=== PATIENT | female | born 1995 | race American Indian/Alaskan Native ===

== ENCOUNTER 2020-02-03 15:23 | Outpatient (CLI) | payer BC, MEDICAID ==
[2020-02-03 16:51] VITALS: BP 112/64
[2020-02-03] MEDS ORDERED: LACTATED RINGERS 1,000 ML IV SCH (17:00)
[2020-02-03 17:17] LABS: Bacteria,Urine 1+ /HPF (Negative); Bilirubin,Urine NEG (Negative); Blood,Urine SM (Negative); Color,Urine Yellow (Yellow); Mucus,Urine 2+ /HPF
== END 2020-02-03 19:00 | disposition home or self-care (01) ==
LOC: APU 15:23 → TRG 15:23
PROVIDERS: ATTEND Obstetrics & Gynecology
DX: O26.893 Other specified pregnancy related conditions, third trimester (principal); R10.9 Unspecified abdominal pain; O47.03 False labor before 37 completed weeks of gestation, third trimester; R19.7 Diarrhea, unspecified; O13.3 Gestational [pregnancy-induced] hypertension without significant proteinuria, third trimester; Z3A.34 34 weeks gestation of pregnancy
CPT/HCPCS: 59025; 81001; 96360

== ENCOUNTER 2022-02-16 02:53 | Inpatient (IN) | payer MEDICAID ==
[2022-02-14 12:10] LABS: Hemoglobin 10.3 gm/dl (10.1-14.3); Mean Corpuscular HGB Conc 33 % (30-34); Mean Corpuscular Volume 82 fl (79-97); Platelet Count 129 K/mm3 (140-440); Red Blood Count 3.76 M/mm3 (3.65-5.03)
--- NOTE | 2022-02-15 19:00 | History and Physical Report ---
History of Present Illness Date of examination: 02/10/22 Chief complaint: Repeat delivery with removal of both fallopian tubes for sterilization History of present illness: EDC Calculations LMP: 02/18/2022 EDC Confirmation: 02/18/2022 Gestational Age: 7 3/7 weeks Past History : 4 Term Births: 2 Premature Births: 0 Living Children: 2 Para: 2 Mult. Births: 0 Prev : 2 Prev. attempt? 0 Aborta: 1 Elect. Ab: 1 Spont. Ab: 0 Ectopics: 0 # 1 Delivery date: 09/21/2014 Weeks Gestation: 38 Delivery type: Hours of labor: 18 Anesthesia type: Spinal Delivery location: [facility] Infant Sex: male weight: 6.50 Name: Reyes Comments: PPROM/ Failure of dilatation # 2 Delivery date: 03/10/2020 Weeks Gestation: 39 Delivery type: Anesthesia type: Spinal Delivery location: [facility] Sex: male weight: 8.25 Name: Dylan # 3 Delivery date: 09/2020 Weeks Gestation: 6 Delivery type: EAB Comments: D&C, no complications Past Medical History: Reviewed history from 01/06/2021 and no changes required: Negative Past Medical History Past Surgical History: Reviewed and updated today: positive, Gallbladder removed x2 Risk Factors: Smoked Tobacco Use: Never smoker Smokeless Tobacco Use: Never Counseled to Quit/Cut Down: yes Passive Smoke Exposure: no HIV High Risk Behavior: no Caffeine Use: <1 drinks per day Exercise: yes Times/wk: 4 Type of Exercise: walking, pushups & situps No Exercise Counseling Reason: Medical Reason Seatbelt Use: preg-mental health counselor % Family History Risk Factors: Family History of NV in 1 Female Relative Age < 65: no Family History of NV in 1 Male Relative Age < 55: no No Dietary Counseling Reason: pn yes PAP Smear History: Date of Last PAP Smear: 01/11/2021 Results: Normal Alcohol Use: no Drug Use: no Past Medical History Anesthesia Complications: negative Anemia: negative Autoimmune Disorder: negative Bleeding Disorder: negative Blood Transfusions: negative Breast Disease: negative Diabetes: negative Heart Disease: negative Hypertension: negative Hepatitis/Liver Disease: negative Kidney Disease/UTI: negative Neurologic/Epilepsy/Migraines: negative Phlebitis/Varicosities: negative Psychiatric: negative Pulmonary Disease/Asthma: negative Thyroid Disease: negative Hospitalizations: negative Surgery (Non-quarter backer): positive, Gallbladder removed Abnormal PAP: negative PAMELA Exposure: negative Infertility: negative Uterine Anomaly: negative Uterine Surgery (not C/S): negative Other Gynecologic Problems: negative Social Hx: unemployed Patient is long-term relationship Smoking History: Patient has never smoked. Infection History Hx of STD: chlamydia HIV Risk Eval: no Personal hx. of genital herpes: no Partner hx. of genital herpes: no Rash, Viral, or Febrile illness since last LMP? no Varicella/Chicken Pox Status: Unknown TB Risk: no Genetic History Congenital Heart Defect: Mom: no Dad: no Aileen Disease: Mom: no Dad: no Thalassemia Mom: no Dad: no Neural Tube Defect Mom: no Dad: no Down's Syndrome Mom: no Dad: no Nick-Sachs Mom: no Dad: no Sickle Cell Disease/Trait Mom: no Dad: no Hemophilia Mom: no Dad: no Muscular Dystrophy Mom: no Dad: no Cystic Fibrosis Mom: no Dad: no Levy Chorea Mom: no Dad: no Mental Retardation Mom: no Dad: no Fragile X Mom: no Dad: no Other Genetic/Chromosomal Disorder Mom: no Dad: no Child w/other defect Mom: no Dad: no Enviromental Exposures Xray Exposure: no Medication, drug, or alcohol use since LMP: no Chemical/Other Exposure: no Exposure to Cat Liter: no Hx of Parvovirus (Fifth Disease): no Occupational Exposure to Children: none Active Medications (reviewed today): Diclegis 10-10 mg tablet,delayed release (DR/EC) (doxylamine-pyridoxine (vit b6) ) Current Allergies: No known allergies HBsAg Screen Negative Negative *1 RPR Non Reactive Non Reactive *2 Rubella Antibodies, IgG 5.29 index Immune >0.99 *3 Non-immune <0.90 Equivocal 0.90 - 0.99 Immune >0.99 ABO Grouping A *4 Rh Factor Negative *5 Please note: Prior records for this patient's ABO / Rh type are not available for additional verification. Antibody Screen Negative Negative *6 WBC 9.0 x10E3/uL 3.4-10.8 *7 RBC 4.47 x10E6/uL 3.77-5.28 *8 Hemoglobin 12.2 g/dL 11.1-15.9 *9 Hematocrit 37.8 % 34.0-46.6 *10 MCV 85 fL 79-97 *11 MCH 27.3 pg 26.6-33.0 *12 MCHC 32.3 g/dL 31.5-35.7 *13 RDW 13.1 % 11.7-15.4 *14 Platelets 192 x10E3/uL 150-450 *15 Neutrophils 63 % Not Estab. *16 Lymphs 29 % Not Estab. *17 Monocytes 7 % Not Estab. *18 Eos 1 % Not Estab. *19 Basos 0 % Not Estab. *20 ! Immature Cells <No Reported Value> *21 Neutrophils (Absolute) 5.6 x10E3/uL 1.4-7.0 *22 Lymphs (Absolute) 2.6 x10E3/uL 0.7-3.1 *23 Monocytes(Absolute) 0.7 x10E3/uL 0.1-0.9 *24 Eos (Absolute) 0.1 x10E3/uL 0.0-0.4 *25 Baso (Absolute) 0.0 x10E3/uL 0.0-0.2 *26 ! Immature Granulocytes 0 % Not Estab. *27 ! Immature Grans (Abs) 0.0 x10E3/uL 0.0-0.1 *28 ! NRBC <No Reported Value> *29 Hematology Comments: <No Reported Value> *30 Tests: (2) HB Solu + Rflx Fra ([id number]) Hemoglobin (Hgb) Solubility Negative Negative *31 Tests: (3) HIV Ab/p24 Ag with Reflex ([id number]) HIV Ab/p24 Ag Screen Non Reactive Non Reactive *32 HIV Negative HIV-1/HIV-2 antibodies and HIV-1 p24 antigen were NOT detected. There is no laboratory evidence of HIV infection. Tests: (4) Varicella-Zoster V Ab, IgG ([id number]) ! Varicella Zoster IgG >4000 index Immune >165 *33 Negative <135 Equivocal 135 - 165 Positive >165 A positive result generally indicates exposure to the pathogen or administration of specific immunoglobulins, but it is not indication of active infection or stage of disease. Tests: (5) Varicella-Zoster Ab, IgM ([id number]) ! Varicella-Zoster Ab, IgM [H] 1.72 index 0.00-0.90 *34 Negative <0.91 Borderline 0.91 - 1.09 Positive >1.09 Tests: (6) HCV Antibody reflex to ROMINA ([id number]) HCV Ab <0.1 s/co ratio 0.0-0.9 *35 Tests: (7) Interpretation: ([id number]) ! Interpretation: SPRCS *36 Negative Not infected with HCV, unless recent infection is suspected or other evidence exists to indicate HCV infection. Tests: (8) Urine Culture, Routine ([id number]) Urine Culture, Routine Final report *37 Tests: (9) Result ([id number]) ! Result 1 No growth *38 Physical Exam General appearance: well nourished, healthy appearing, no distress Chest/Lungs: respiratory effort normal, lungs clear to auscultation Abdomen/GI: soft, nontender Extremities: no discoloration or edema Vagina: normal appearance, no discharge Cervix: Dilation (cm): 0 Effacement: 0% Station: -3 Position: posterior Consistency: soft Problem # 1: Maternal care for low transverse scar from previous delivery (ICD-654.23) (PNG17-T21.211) Consent reviewed and signed. The risks and alternatives for this surgery were reviewed with the patient. She was informed of, but not limited to, possible bleeding, infection, injury to bowel, bladder, ureters or other adjacent organs. The patient was instructed/informed the following: The normal length of hospital stay for this procedure. Nothing to eat or drink after midnight the evening prior to surgery. Wound care instructions given. Infection precautions reviewed, patient to call for any signs or symptoms of infection. The usual discomforts associated with this procedure were detailed. Proper use of pain medicines was reviewed. Patient was given ample opportunity to have all her questions answered before signing informed consent. Problem # 2: Sterilization (ICD-V25.2) (JOJ34-H23.2) Risks of regret emphasized. Permanent and irreversible condition explained to patient. Pt verbalized understanding. Consent reviewed and signed. Pre- operative instructions sheets given. The risks and alternatives to this surgery were reviewed with the patient. Infection precautions reviewed, pt to call for any signs or symptoms of infection. Patient given ample opportunity to have all her questions answered before signing informed consent. Patient informed of possible bleeding. 1%failure rate emphasized Problem # 3: Type A blood, Rh negative (FJQ54-F25.11) RHOGAM given 12/20/2021 Past History - Obstetrical History Expected Date of Delivery: 02/18/22 Actual Gestation: 39 Week(s) 4 Day(s) : 4 Medications and Allergies Allergies Allergy/AdvReac Type Severity Reaction Status Date / Time No Known Drug Allergies Allergy Unknown Verified 02/08/22 16:57 Home Medications Medication Instructions Recorded Confirmed Last Taken Type No Known Home Medications [No 02/08/22 02/08/22 Unknown History Reported Home Medications] Active Meds: Active Medications Citric Acid/Sodium Citrate (Bicitra Oral Liqd 30ml) 30 ml PO ONCE ONE Stop: 02/16/22 06:01 Famotidine (Famotidine 20 Mg/2 Ml Inj) 20 mg IV ONCE KAMARI Lactated Ringer's (Lactated Ringers) 1,000 mls @ 2,250 mls/hr IV PREOP KAMARI Stop: 02/17/22 06:27 Oxytocin/Sodium Chloride (Pitocin/Ns 30 Unit/500ml) 30 units in 500 mls @ 0 mls/hr IV TITR KAMARI; Protocol Cefazolin Sodium (Ancef/Sterile Water 2 Gm/20 Ml) 2 gm in 20 mls @ 80 mls/hr IV PREOP NR; Protocol Stop: 02/16/22 23:00 Metoclopramide HCl (Metoclopramide 10 Mg/2 Ml Inj) 10 mg IV ONCE KAMARI - Vital Signs Vital signs: Vital Signs Temp Pulse Resp BP Pulse Ox 98.2 F 115 H 20 113/74 97 02/14/22 11:50 02/14/22 11:50 02/14/22 11:50 02/14/22 11:50 02/14/22 11:50 Temp Pulse Resp BP Pulse Ox 98.2 F 115 H 20 113/74 97 02/14/22 11:50 02/14/22 11:50 02/14/22 11:50 02/14/22 11:50 02/14/22 11:50 Results Result Diagrams: 02/14/22 12:05 All other labs normal. Assessment and Plan - Patient Problems (1) 39 weeks gestation of Status: Acute (2) Maternal care for scar from previous delivery Status: Acute Qualifiers: Previous scar type: low transverse Qualified Code(s): O34.211 - Maternal care for low transverse scar from previous delivery (3) Sterilization Status: Chronic (4) Rh negative state in antepartum period Status: Chronic (5) Thrombocytopenia complicating Status: Acute
[2022-02-16] MEDS ORDERED: BICITRA ORAL LIQD 30ML PO ONE ×2 (06:00→21:19)
[2022-02-16] MEDS ORDERED: OXYTOCIN DRIP 30 UNITS/500 ML BAG IV SCH (06:00)
[2022-02-16] MEDS ORDERED: METOCLOPRAMIDE 10 MG/2 ML INJ IV SCH (06:00)
[2022-02-16] MEDS ORDERED: ceFAZolin/Water 2 GM/20 ML 2 GM/20 ML SYRINGE IV NR (06:00)
[2022-02-16] MEDS ORDERED: FAMOTIDINE 20 MG/2 ML INJ IV SCH (06:00)
[2022-02-16] MEDS: LACTATED RINGERS 1,000 ML IV SCH ×2 (12:01→12:02)
--- NOTE | 2022-02-16 14:40 | Event Note ---
Date: 02/16/22 She declines sterilization at this time
[2022-02-16] MEDS ORDERED: BICITRA ORAL LIQD 30ML ONE (20:18)
[2022-02-16] MEDS ORDERED: BUPIVACAINE/PF (0.25%) 2.5 MG/ML 30 ML VIAL INFILTRATI ONE (20:28)
[2022-02-16] MEDS ORDERED: PHENYLEPHRINE/NS 1,000 MCG/10 ML SYRINGE (OR USE) IV ONE (20:28)
[2022-02-16] MEDS ORDERED: ONDANSETRON 4 MG/2 ML INJ ONE (20:28)
[2022-02-16] MEDS ORDERED: ePHEDrine SULFATE 50 MG/1 ML INJ ONE (20:28)
[2022-02-16] MEDS ORDERED: SODIUM CHLORIDE 0.9% IRR 1,500 ML BOTTLE IR ONE (21:15)
[2022-02-16] MEDS ORDERED: WATER FOR IRRIG STERILE 1,500 ML BOTTLE IR ONE (21:15)
[2022-02-16] MEDS ORDERED: GLYCOPYRROLATE 0.4 MG/2 ML INJ ONE (21:15)
--- NOTE | 2022-02-16 22:09 | Operative Report ---
Operative Report Operative Report: Date of operation: 02/16/2022 Pre-operative diagnosis: 1. Intrauterine at 39 weeks gestational age 2. Previous delivery desires repeat section 3. Rh- 4. BMI 34.2 kg/m2 Post-operative diagnosis: 1. Intrauterine at 39 weeks gestational age 2. Previous delivery desires repeat section 3. Rh- 4. BMI 34.2 kg/m2 Procedure name(s): Repeat low transverse uterine incision Surgeon: Emily Mcdaniels MD Heel Cover Softener: Trina Jacobo CNM Anesthesia: Spinal EBL: Not available at this time Urine output: 250 mL of clear urine out at the end of the procedure Fluids: 2500 mL Findings: Liveborn male weight 6 Lbs. 8 oz. Apgars of 8 and 9 at one and 5 minutes Procedure: Patient was taking to the operating room. Spinal anesthesia was placed. Patient was then prepped and draped in the usual sterile fashion Timeout was performed. Once an appropriate level of anesthesia was noted, a Pfannenstiel incision was made and extended the fascia which was incised and extended lateral direction. The overlying fascia was sharply dissected away from the underlying rectus muscles in the superior inferior direction. The midline was entered bluntly. Bladder blade was placed. Vesicouterine fold was incised with blunt dissection bladder flap was created. A transverse incision was made in the lower uterine segment and extended superolateral direction with finger fractionation. Clear fluid was noted. was delivered from the cephalic ROT position, with spontaneous cry and excellent tone. Mouth and nose bulb suctioned. Cord was doubly clamped and cut was given to the resuscitation team present. Placenta was delivered. The uterus was exteriorized and cleaned of any further placental tissue and products of conception. Uterine incision was approximated using 0 Vicryl in a running interlocking stitch followed by further suture of 0 Vicryl in imbricating fashion. When hemostasis was noted the uterus was allowed back in the pelvic cavity. Pelvis was irrigated with warm normal saline. Once hemostasis was noted the rectus muscles were approximated using 0 Vicryl interrupted simple stitches 3. Once hemostasis was noted the fascia was approximated using 0 Vicryl simple running stitch. The incision was irrigated with warm saline, once hemostasis as noted, the subcuticular adipose tissue was reapproximated using 3- 0 Vicryl in a simple running fashion. Skin was approximated using 4-0 Vicryl on a Jarvis needle in a subcuticular manner. Counts were correct x3. Patient tolerated the procedure well, she was taken to recovery room in stable condition.
[2022-02-16] MEDS ORDERED: TRANEXAMIC ACID 1,000 MG in SODIUM CHLORIDE 0.9% 100 ML IV ONE (22:30)
[2022-02-16] MEDS ORDERED: diphenhydrAMINE 50 MG/ML VIAL IV PRN (22:31)
[2022-02-16] MEDS ORDERED: PROMETHAZINE 25 MG TAB PO PRN (22:31)
[2022-02-16] MEDS ORDERED: NALOXONE 0.4 MG/1 ML INJ IV PRN (22:31)
[2022-02-16] MEDS ORDERED: PROMETHAZINE 25 MG RECT SUPP PR PRN (22:31)
[2022-02-16] MEDS ORDERED: ONDANSETRON 4 MG/2 ML INJ IV PRN (22:31)
[2022-02-16] MEDS ORDERED: HYDROmorphone 1 MG/1 ML INJ IV PRN ×2 (22:31)
[2022-02-16] MEDS ORDERED: MORPHINE 4 MG/1 ML INJ IV PRN (22:31)
--- NOTE | 2022-02-16 22:33 | Anesthesia Day of Surgery ---
Anesthesia Day of Surgery - Day of Surgery Patient Examined: Yes Patient H&P Reviewed: Yes Patient is NPO: Yes Beta Blockers: No Cardiac Clearance: No Pulmonary Clearance: No Sedrick's Test: N/A
--- NOTE | 2022-02-16 22:33 | Anesthesia Consultation ---
Anesthesia Consult and Med Hx Date of service: 02/16/22 - Airway Anesthetic Teeth Evaluation: Good ROM Head & Neck: Adequate Mental/Hyoid Distance: Adequate Mallampati Class: Class II Intubation Access Assessment: Probably Good - Pulmonary Exam CTA: Yes - Cardiac Exam Cardiac Exam: RRR - Pre-Operative Health Status ASA Pre-Surgery Classification: ASA2 Proposed Anesthetic Plan: Spinal Nerve Block: Ap Tap - Pulmonary Hx Smoking: No Hx Asthma: No Hx Respiratory Symptoms: No SOB: No COPD: No Home Oxygen Therapy: No Hx Pneumonia: No Hx Sleep Apnea: No - Cardiovascular System Hx Hypertension: No Hx Coronary Artery Disease: No Hx Heart Attack/AMI: No Hx Angina: No Hx Percutaneous Transluminal Coronary Angioplasty (PTCA): No Hx Cardia Arrhythmia: No Hx Pacemaker: No Hx Internal Defibrillator: No Hx Valvular Heart Disease: No Hx Heart Murmur: No Hx Peripheral Vascular Disease: No - Central Nervous System Hx Neuromuscular Disorder: No Hx Seizures: No CVA: No Hx Back Pain: No Hx Psychiatric Problems: No - Gastrointestinal Hx Ulcer: No Hx Gastroesophageal Reflux Disease: No - Endocrine Hx Renal Disease: No Hx End Stage Renal Disease: No Hx Cirrhosis: No Hx Liver Disease: No Hx Insulin Dependent Diabetes: No Hx Non-Insulin Dependent Diabetes: No Hx Thyroid Disease: No Hx Hypothyroidism: No Hx Hyperthyroidism: No - Hematic Hx Anemia: No Hx Sickle Cell Disease: No - Other Systems Hx Alcohol Use: No Hx Substance Use: No Hx Cancer: No Hx Obesity: No
--- NOTE | 2022-02-16 22:34 | Progress Note ---
Regional Anesthesia Block - Regional Anesthesia Block Start Time: 22:12 Stop Time: 22:18 Performed By:: TONYA OZUNA Procedure: After Pts C/S was completed a time out was performed prior to the start of the procedure. The Trans Abdominal Plane was identified bilaterally via ultrasound. The skin was prepped bilaterally with chlorhexidine and a 22g stimuplex needle was advanced to the area between the internal oblique muscle and the trans abdominal plane. Marcaine 0.25% 30mlwas injected under ultrasound guidance on the left and right side. Negative aspiration every 5mL, There was no change in the patients heart rate or rhythm and the patient tolerated the procedure well. No apparent complications were observed.
--- NOTE | 2022-02-16 22:34 | Progress Note ---
Spinal Anesthesia Block - Spinal Anesthesia Block Start Time: 20:49 Stop Time: 20:55 Performed by:: TONYA OZUNA Procedure: The patient was placed in a sitting position on the OR table and monitors applied. A timeout was performed immediately prior to the start of the procedure. The patient was Prepped and draped in a sterile fashion and the skin was localized with 3 mL 1% lidocaine at L[4]-L[5] interspace. An introducer was placed into the back between L4-L5 and a 25g spinal needle was advanced into the intrathecal space until clear, free flowing CSF was observed. 1.8cc of 0.75% hyperbaric bupivacaine + 5mcg Precedex was injected into the intrathecal space and the spinal needle was removed. The patient tolerated the procedure well and there were no immediate complications noted.
[2022-02-16] MEDS ORDERED: fentaNYL-BUPIV 2 MCG/ML-0.125% 200 MCG/100 ML BAG EPIDURAL SCH (23:00)
[2022-02-17] MEDS ORDERED: MORPHINE 4 MG/1 ML INJ IV PRN (02:02)
[2022-02-17] MEDS ORDERED: OXYTOCIN DRIP 30 UNITS/500 ML BAG IV SCH (02:02)
[2022-02-17] MEDS ORDERED: NALOXONE 0.4 MG/1 ML INJ IV PRN (02:02)
[2022-02-17] MEDS ORDERED: D5W/LACTATED RINGERS 1,000 ML IV SCH (02:02)
[2022-02-17] MEDS ORDERED: PROMETHAZINE 25 MG RECT SUPP PR PRN (02:02)
[2022-02-17] MEDS ORDERED: MORPHINE 2 MG/1 ML INJ IV PRN (02:02)
[2022-02-17] MEDS ORDERED: LANOLIN/ZINC/DIMETHICONE (LANSINOH) 7 GM TP PRN (02:02)
[2022-02-17] MEDS ORDERED: WITCH HAZEL/ GLYCERIN PAD TP PRN (02:02)
[2022-02-17] MEDS ORDERED: SENNOSIDES 8.6 MG TAB PO PRN (02:02)
[2022-02-17] MEDS ORDERED: oxyCODONE /ACETAMINOPHEN 5-325MG TAB PO PRN (02:02)
[2022-02-17] MEDS ORDERED: MAGNESIUM HYDROXIDE (MOM) ORAL LIQD UDC PO PRN (02:02)
[2022-02-17] MEDS ORDERED: ONDANSETRON 4 MG/2 ML INJ IV PRN (02:02)
[2022-02-17] MEDS ORDERED: SIMETHICONE 80 MG CHEW TAB PO PRN (02:02)
--- NOTE | 2022-02-17 07:17 | Progress Note ---
Assessment and Plan - Patient Problems (1) delivery delivered Current Visit: No Status: Acute Plan to address problem: Continue pathway Ambulation pain management Subjective - Subjective Date of service: 02/17/22 Patient reports: appetite normal, pain well controlled : doing well, nursing well, bottle feeding Objective - Vital Signs Latest vital signs: Vital Signs Temp Pulse Resp BP Pulse Ox Pulse Ox 02/17/22 07:16 127 H 92 02/17/22 07:15 99 H 98 02/17/22 07:10 82 100 02/17/22 07:05 95 H 100 02/17/22 07:00 73 100 02/17/22 06:55 72 100 02/17/22 06:51 71 105/66 02/17/22 06:50 69 100 02/17/22 06:45 79 99 02/17/22 06:40 69 100 02/17/22 06:35 69 100 02/17/22 06:30 69 100 02/17/22 06:25 84 100 02/17/22 06:20 72 100 02/17/22 06:15 70 100 02/17/22 06:10 73 100 02/17/22 06:05 72 100 02/17/22 06:00 78 100 02/17/22 05:55 89 100 02/17/22 05:51 88 114/70 02/17/22 05:50 64 100 02/17/22 05:45 103 H 98 02/17/22 05:40 71 100 02/17/22 05:35 67 100 02/17/22 05:33 101 H 91 02/17/22 05:30 73 100 02/17/22 05:25 69 100 02/17/22 05:20 70 100 02/17/22 05:15 80 99 02/17/22 05:10 78 98 02/17/22 05:05 69 100 02/17/22 05:00 98 H 100 02/17/22 04:56 95 H 93 02/17/22 04:55 94 H 92 02/17/22 04:51 68 101/58 02/17/22 04:50 70 99 02/17/22 04:45 77 99 02/17/22 04:40 75 98 02/17/22 04:35 82 94 02/17/22 04:30 73 99 02/17/22 04:25 87 99 02/17/22 04:20 71 99 02/17/22 04:15 80 98 02/17/22 04:10 70 99 02/17/22 04:09 92 H 91 02/17/22 04:05 68 100 02/17/22 04:03 115 H 91 02/17/22 04:00 70 99 02/17/22 03:55 69 100 02/17/22 03:50 65 99 02/17/22 03:45 75 100 02/17/22 03:40 64 99 02/17/22 03:38 92 H 91 02/17/22 03:35 66 99 02/17/22 03:30 73 99 02/17/22 03:25 71 98 02/17/22 03:20 77 91 02/17/22 03:15 105 H 98 02/17/22 03:10 80 100 02/17/22 03:05 85 100 02/17/22 03:00 90 97 02/17/22 02:57 84 93 02/17/22 02:55 66 97 02/17/22 02:52 78 105/61 02/17/22 02:50 99 H 91 02/17/22 02:45 68 100 02/17/22 02:40 67 100 02/17/22 02:35 71 100 02/17/22 02:30 76 100 02/17/22 02:25 67 100 02/17/22 02:20 82 100 02/17/22 02:19 83 87 02/17/22 02:15 94 H 100 02/17/22 02:14 79 90 02/17/22 02:10 81 88 02/17/22 02:06 95 H 90 02/17/22 02:05 91 H 95 02/17/22 02:00 75 100 02/17/22 01:57 18 02/17/22 01:55 69 100 02/17/22 01:50 79 100 02/17/22 01:45 82 99 02/17/22 01:41 75 90 02/17/22 01:40 73 100 02/17/22 01:35 71 100 02/17/22 01:30 78 99 02/17/22 01:25 92 H 98 02/17/22 01:20 69 100 02/17/22 01:18 94 H 93 02/17/22 01:15 80 100 02/17/22 01:13 95 02/17/22 01:10 76 100 02/17/22 01:05 71 100 02/17/22 01:00 77 98 02/17/22 00:55 76 100 02/17/22 00:51 84 89 02/17/22 00:50 74 100 02/17/22 00:44 100 H 93 02/16/22 23:55 97.8 F 82 12 125/75 100 02/16/22 23:40 80 11 L 126/74 100 02/16/22 23:25 73 11 L 126/69 100 02/16/22 23:10 83 13 128/78 100 02/16/22 22:55 83 9 L 135/85 100 02/16/22 22:35 91 H 7 L 128/81 100 02/16/22 22:20 79 7 L 134/72 100 02/16/22 22:15 86 7 L 132/62 100 02/16/22 22:09 97.7 F 95 H 9 L 116/64 99 02/16/22 20:31 109 H 99 02/16/22 20:26 103 H 99 02/16/22 20:21 98 H 99 02/16/22 20:16 98 H 100 02/16/22 20:11 97 H 99 02/16/22 20:06 89 98 02/16/22 20:01 90 98 02/16/22 19:56 111 H 97 02/16/22 19:51 92 H 98 02/16/22 19:46 104 H 99 02/16/22 19:41 103 H 99 02/16/22 19:36 93 H 100 02/16/22 19:31 100 H 99 02/16/22 19:26 89 98 02/16/22 19:21 85 98 02/16/22 19:16 93 H 98 02/16/22 19:13 89 116/65 02/16/22 19:11 90 98 02/16/22 18:58 86 98 02/16/22 18:53 106 H 97 02/16/22 18:48 93 H 98 02/16/22 18:43 98 H 98 02/16/22 18:38 87 98 02/16/22 18:33 110 H 100 02/16/22 18:28 95 H 99 02/16/22 18:23 101 H 98 09/29/22 18:18 102 H 98 02/16/22 18:14 91 H 115/69 02/16/22 18:13 88 99 02/16/22 18:08 97 H 100 02/16/22 18:03 103 H 98 02/16/22 17:58 82 99 02/16/22 17:53 90 98 02/16/22 17:48 108 H 100 02/16/22 17:43 94 H 97 02/16/22 17:38 88 97 02/16/22 17:33 102 H 98 02/16/22 17:28 86 98 02/16/22 17:23 94 H 97 02/16/22 17:18 87 97 02/16/22 17:14 92 H 117/67 02/16/22 17:13 96 H 98 02/16/22 17:08 89 97 02/16/22 17:03 91 H 98 02/16/22 16:58 95 H 100 02/16/22 16:53 101 H 98 02/16/22 16:48 95 H 99 02/16/22 16:43 91 H 100 02/16/22 16:38 81 98 02/16/22 16:33 93 H 99 02/16/22 16:28 100 H 99 02/16/22 16:23 86 99 02/16/22 16:18 89 99 02/16/22 16:14 95 H 111/70 02/16/22 16:13 89 98 02/16/22 16:08 95 H 99 02/16/22 16:03 86 98 02/16/22 15:58 95 H 98 02/16/22 15:53 103 H 97 02/16/22 15:48 91 H 98 02/16/22 15:43 87 99 02/16/22 15:38 92 H 99 02/16/22 15:33 94 H 98 02/16/22 15:28 81 99 02/16/22 15:23 86 98 02/16/22 15:18 89 98 02/16/22 15:14 85 128/67 02/16/22 15:13 87 98 02/16/22 15:08 94 H 99 02/16/22 15:03 95 H 98 02/16/22 14:58 82 98 02/16/22 14:53 87 99 02/16/22 14:48 89 100 02/16/22 14:43 95 H 100 02/16/22 14:38 86 99 02/16/22 14:33 83 98 02/16/22 14:28 89 99 02/16/22 14:23 86 99 02/16/22 14:18 96 H 100 02/16/22 14:14 103 H 112/64 02/16/22 14:13 96 H 98 02/16/22 14:01 85 97 02/16/22 13:56 86 98 02/16/22 13:51 95 H 98 02/16/22 13:46 91 H 99 02/16/22 13:41 90 99 02/16/22 13:36 92 H 114/60 99 02/16/22 13:31 94 H 99 02/16/22 13:26 86 99 02/16/22 13:21 79 97 02/16/22 13:16 97 H 98 02/16/22 13:11 90 98 02/16/22 13:06 106 H 119/68 97 02/16/22 13:01 87 98 02/16/22 12:56 90 97 02/16/22 12:51 96 H 98 02/16/22 12:46 87 98 02/16/22 12:41 87 99 02/16/22 12:36 83 124/67 97 02/16/22 12:31 85 98 02/16/22 12:26 94 H 98 02/16/22 12:21 81 98 02/16/22 12:16 86 98 02/16/22 12:11 90 97 02/16/22 12:06 86 111/61 97 02/16/22 12:01 91 H 98 02/16/22 11:56 96 H 98 02/16/22 11:51 87 97 02/16/22 11:46 89 99 02/16/22 11:41 99 H 97 02/16/22 11:37 86 114/68 02/16/22 11:36 88 99 02/16/22 11:31 88 98 02/16/22 11:29 98.5 F 20 02/16/22 11:26 98 H 98 02/16/22 11:23 99 02/16/22 11:21 97 H 98 02/16/22 11:16 84 97 02/16/22 11:12 88 91 02/16/22 11:11 85 97 02/16/22 11:06 90 115/73 98 02/16/22 11:01 80 97 02/16/22 10:56 108 H 98 02/16/22 10:51 88 97 02/16/22 10:46 90 97 02/16/22 10:41 90 97 02/16/22 10:36 95 H 114/74 98 02/16/22 10:31 89 96 02/16/22 10:26 102 H 97 02/16/22 10:21 83 97 02/16/22 10:16 94 H 96 02/16/22 10:11 93 H 97 02/16/22 10:06 100 H 109/62 97 Intake and Output 02/16/22 02/16/22 02/17/22 15:59 23:59 07:59 Intake Total 37.5 2700 Output Total 400 Balance 37.5 2300 Intake: IV 37.5 2700 Lactated Ringers 1,000 ml 37.5 @ 2250 mls/hr IV PREOP KAMARI Rx#:[id number] Output: Urine 400 Uretheral (Fleming) 200 Other: Weight 87.543 kg - Exam Narrative Exam: PT in bed, no concerns voiced. States doing better and pain is tolerable. Currently breast and formula feeding. VSSAF. Fundus firm, lochia normal. Surgical dressing clean dry and intact, to be removed tonight. Desires mirena IUD at ppv. Discharge planning for tomorrow. Breasts: Present: normal Cardiovascular: Present: Regular rate, Normal S1, Normal S2 Lungs: Present: Clear to auscultation, Normal air movement Abdomen: Present: normal appearance, soft Uterus: Present: firm Extremities: Present: normal Incision: Present: normal, dry, intact, dressed Comments: Dressing clean dry and intact. To be remove tonight.
[2022-02-17] MEDS: KETOROLAC 30 MG/1 ML INJ IV SCH ×2 (07:20→16:04)
[2022-02-17] MEDS: ceFAZolin/NS 1 GM/50 ML 1 GM/50 ML BAG IV SCH ×2 (08:05→14:23)
[2022-02-17] MEDS: ACETAMINOPHEN 500 MG TAB PO SCH ×2 (12:10→21:55)
[2022-02-17 12:45] LABS: Hemoglobin 9.7 gm/dl (10.1-14.3); Mean Corpuscular HGB Conc 34 % (30-34); Mean Corpuscular Volume 83 fl (79-97); Platelet Count 109 K/mm3 (140-440); Red Cell Distribution Width 15.5 % (13.2-15.2)
[2022-02-17 16:47] VITALS: BP 108/71
--- NOTE | 2022-02-17 21:45 | Post Anesthesia Evaluation ---
- Post Anesthesia Evaluation Patient Participated: No Airway Patent: Yes Stable Respiratory Function: Yes Nausea/Vomiting: No Temp > 96.8F: Yes Pain Manageable: Yes Adequeate Hydration: Yes Anesthesia Complications: No Block Receding Appropriately: Yes Patient on Ventilator: No
[2022-02-18] MEDS ORDERED: TETANUS,DIPH,PERTUSS(ACELL) VACCINE 0.5 ML SYRINGE IM ONE (06:00)
[2022-02-18] MEDS ORDERED: IBUPROFEN 800 MG TAB PO PRN (06:00)
== END 2022-02-17 23:53 | disposition home or self-care (01) | DRG 766 ==
LOC: APU 09:18 → LD 02-17 00:38 → OB 02-17 10:24
PROVIDERS: ADMIT Obstetrics & Gynecology; ATTEND Obstetrics & Gynecology
PROC: 10D00Z1 Extraction of Products of Conception, Low, Open Approach (ICD-10-PCS; principal; 2022-02-16)
PROC: 3E0234Z Introduction of Serum, Toxoid and Vaccine into Muscle, Percutaneous Approach (ICD-10-PCS; 2022-02-16)
DX: O34.211 Maternal care for low transverse scar from previous cesarean delivery (principal); Z37.0 Single live birth; Z3A.39 39 weeks gestation of pregnancy; Z20.822 Contact with and (suspected) exposure to COVID-19
CPT/HCPCS: 36415; 85027; 85461; 86592; 86850; 86870; 86900; 86901; G0378; J1815; J3490; J0690; J1170; J1885; J2270; J2370; J2405; J2590; J2765; J2790; J7120; U0003